=== PATIENT | female | born 1965 | race Caucasian/White ===

== ENCOUNTER 2016-10-16 11:58 | Emergency (ER) | payer BC, MEDICAID, OTHER ==
[~2016-10-16] VITALS: Ht 157.5 cm; Wt 74.4 kg
[2016-10-16 12:14] VITALS: BP 134/75
[2016-10-16] MEDS ORDERED: IBUPROFEN 600 MG TAB PO ONE (14:00)
--- NOTE | 2016-10-16 14:12 | NUR ---
PATIENT IS A 51 YO FEMALE BIB SELF FOR RIGHT RIB PAIN, FROM FALL. DENIES SOB AND IS ABLE TO AMBULTE. TO OVERFLOW FOR MD RAMIREZ.
[2016-10-16 14:13] VITALS: BP 132/78
--- NOTE | 2016-10-16 14:14 | NUR ---
Patient discharged with v/s stable. Written and verbal after care instructions given and explained. Patient alert, oriented and verbalized understanding of instructions. Ambulatory with steady gait. All questions addressed prior to discharge. ID band removed. Patient advised to follow up with PMD. Rx of NORCO AND MOTRIN. given. Patient educated on indication of medication including possible reaction and side effects. Opportunity to ask questions provided and answered.
== END 2016-10-16 14:13 | disposition home or self-care (01) ==
LOC: MED 11:58
DX: S22.32XA Fracture of one rib, left side, initial encounter for closed fracture (principal); E11.9 Type 2 diabetes mellitus without complications; E78.00 Pure hypercholesterolemia, unspecified; Z90.710 Acquired absence of both cervix and uterus; W19.XXXA Unspecified fall, initial encounter; Y93.89 Activity, other specified; Y92.89 Other specified places as the place of occurrence of the external cause; Y99.8 Other external cause status